=== PATIENT | male | born 1980 | race Caucasian/White ===

== ENCOUNTER → 2020-06-27 | Outpatient (CLI) | payer SELFPAY ==
--- NOTE | 2020-06-27 12:26 | RAD ---
Study: XR FOOT_RIGHT 3 VIEWS Indication: Right foot pain. Comparison: None. Findings: No acute fracture. No radiographic evidence for stress injury. Alignment is within normal limits. Bip artite os peroneum. 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 No significant joint space narrowing. Impression: 1. No acute osseous abnormality. 2. 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 Electronically signed by: LUCIO FLOOD MD (06/27/2020 12:23 PM) [id number]
== END ==
LOC: DXRAD 09:01
PROVIDERS: ATTEND Internal Medicine
DX: S92.354A Nondisplaced fracture of fifth metatarsal bone, right foot, initial encounter for closed fracture (principal); M19.071 Primary osteoarthritis, right ankle and foot; W10.8XXA Fall (on) (from) other stairs and steps, initial encounter; Y93.89 Activity, other specified; Y92.89 Other specified places as the place of occurrence of the external cause; Y99.8 Other external cause status
CPT/HCPCS: 73630